=== PATIENT | male | born 1990 | race Caucasian/White ===

== ENCOUNTER 2018-08-01 23:26 | Emergency (ER) | payer BC, OTHER ==
--- NOTE | 2018-08-02 00:03 | EDM.PDOC ---
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 Review of systems: As per history of present illness and below otherwise all systems reviewed and negative. Past medical history: As per history of present illness and as reviewed below otherwise noncontributory. Surgical history: As per history of present illness and as reviewed below otherwise noncontributory. Social history: No reported history of drug or alcohol abuse. Family history: As per history of present illness and as reviewed below otherwise noncontributory. Physical exam: Remarkable for a superficial abrasion that is subacute to his right hand and a healing abrasion to his left forearm otherwise unremarkable Diagnostics: Postexposure protocol Therapeutics: To be determined Impression: #1 medical screening exam Definitive disposition and diagnosis as appropriate pending reevaluation and review of above. - Related Data Allergies Allergy/AdvReac Type Severity Reaction Status Date / Time No Known Allergies Allergy Verified 08/02/18 00:02 Home Meds: Home Meds Omeprazole Magnesium [Prilosec Otc] 20 mg PO DAILY 08/02/18 [History] ED ROS GENERAL - Review of Systems Review Of Systems: ROS reveals no pertinent complaints other than HPI. ED EXAM, GENERAL - Physical Exam Exam: See Below (Dictation) Course - Vital Signs Last Recorded V/S: Last Vital Signs Temp 37.1 C 08/01/18 23:59 Pulse 101 H 08/01/18 23:59 Resp 14 08/01/18 23:59 BP 167/104 H 08/01/18 23:59 Pulse Ox 95 08/01/18 23:59 - Orders/Labs/Meds Orders: Active Orders 24 hr Category Date Time Status HBSAG SCREEN [REF] Stat Lab 08/01/18 23:57 Received HEP C VIRUS AB [REF] Stat Lab 08/01/18 23:57 Received HIV12 AG/AB 4TH GEN W/REFLEX [CHEM] Stat Lab 08/01/18 23:57 Received Departure - Departure Time of Disposition: 00:02 Disposition: Home, Self-Care 01 Condition: Good Clinical Impression: Encounter for medical screening examination - Discharge Information *PRESCRIPTION DRUG MONITORING PROGRAM REVIEWED*: Not Applicable *COPY OF PRESCRIPTION DRUG MONITORING REPORT IN PATIENT JASBIR: Not Applicable Instructions: Medical Screening Exam Referrals: PCP,None [Primary Care Provider] - Forms: ED Department Discharge Additional Instructions: The following information is given to patients seen in the emergency department who are being discharged to home. This information is to outline your options for follow-up care. We provide all patients seen in our emergency department with a follow-up referral. The need for follow-up, as well as the timing and circumstances, are variable depending upon the specifics of your emergency department visit. If you don't have a primary care physician on staff, we will provide you with a referral. We always advise you to contact your personal physician following an emergency department visit to inform them of the circumstance of the visit and for follow-up with them and/or the need for any referrals to a consulting specialist. The emergency department will also refer you to a specialist when appropriate. This referral assures that you have the opportunity for followup care with a specialist. All of these measure are taken in an effort to provide you with optimal care, which includes your followup. Under all circumstances we always encourage you to contact your private physician who remains a resource for coordinating your care. When calling for followup care, please make the office aware that this follow-up is from your recent emergency room visit. If for any reason you are refused follow-up, please contact the [facility] emergency department at and asked to speak to the emergency department charge nurse. Follow-up occupational medicine/primary medical doctor return as needed as discussed - My Orders Last 24 Hours: My Active Orders 08/01/18 23:57 HBSAG SCREEN [REF] Stat HEP C VIRUS AB [REF] Stat HIV12 AG/AB 4TH GEN W/REFLEX [CHEM] Stat - Assessment/Plan Last 24 Hours: My Active Orders 08/01/18 23:57 HBSAG SCREEN [REF] Stat HEP C VIRUS AB [REF] Stat HIV12 AG/AB 4TH GEN W/REFLEX [CHEM] Stat
== END 2018-08-02 00:15 | disposition home or self-care (01) ==
LOC: MW.ED 23:26
DX: Z20.6 Contact with and (suspected) exposure to human immunodeficiency virus [HIV] (principal); S60.511A Abrasion of right hand, initial encounter; X58.XXXA Exposure to other specified factors, initial encounter
CPT/HCPCS: 86803; 87340; 87389; 99283

== ENCOUNTER 2020-01-17 22:39 | Emergency (ER) | payer OTHER ==
--- NOTE | 2020-01-18 00:16 | EDM.PDOC ---
ED HPI GENERAL MEDICAL PROBLEM - General Chief Complaint: Lower Extremity Injury/Pain Stated Complaint: PULLED HAMSTRING Time Seen by Provider: 01/18/20 00:05 Source of Information: Reports: Patient - History of Present Illness INITIAL COMMENTS - FREE TEXT/NARRATIVE: The patient was playing flag football and while running he felt his right hamstring pull. He has done this before but it is never hurt this much. No other complaints. left thigh Pain Score (Numeric/FACES): 6 - Related Data Allergies Allergy/AdvReac Type Severity Reaction Status Date / Time No Known Allergies Allergy Verified 01/17/20 23:08 Home Meds: Home Meds Omeprazole Magnesium [Prilosec Otc] 20 mg PO DAILY 08/02/18 [History] Past Medical History - Past Health History Medical/Surgical History: Denies Medical/Surgical History - Infectious Disease History Infectious Disease History: Reports: Chicken Pox Social & Family History - Family History Family Medical History: Noncontributory - Tobacco Use Smoking Status *Q: Never Smoker - Caffeine Use Caffeine Use: Reports: Coffee - Recreational Drug Use Recreational Drug Use: No Review of Systems - Review of Systems Review Of Systems: See Below (Positive for right hamstring injury) ED EXAM, GENERAL - Physical Exam Exam: See Below Free Text/Narrative:: Constitutional: No acute distress, Non-toxic appearance, antalgic gait. HEENT: Normocephalic, Atraumatic, EOMI Neck: Normal range of motion, No stridor, trachea midline Respiratory: No respiratory distress, No tachypnea Cardiovascular: Deferred Gastrointestinal: Deferred Genital / Urinary: Deferred Musculoskeletal: All four extremities present and atraumatic, there is tenderness to the proximal right hamstring, no hematoma, compartments are soft Back: FROM Integument: Warm, Dry, Color is ethnicity appropriate, No rash. Neuro: Alert, Awake, No focal deficits noted Psych: Affect, Judgement, mood normal Course - Vital Signs Text/Narrative:: Exam is consistent with a right hamstring strain. The patient will be given a dose of Toradol 60 mg IM. 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 Last Recorded V/S: Last Vital Signs Temp 36.4 C 01/17/20 23:06 Pulse 86 01/17/20 23:06 Resp 18 01/17/20 23:06 BP 131/75 01/17/20 23:06 Pulse Ox 96 01/17/20 23:06 - Orders/Labs/Meds Meds: Medications Discontinued Medications Generic Name Dose Route Start Last Admin Trade Name Gale PRN Reason Stop Dose Admin Ketorolac Tromethamine 60 mg 01/18/20 00:24 01/18/20 00:28 Toradol IM 01/18/20 00:25 60 mg ONETIME ONE Administration Ketorolac Tromethamine Confirm 01/18/20 00:25 Toradol Administered 01/18/20 00:26 Dose 60 mg .ROUTE .STK-MED ONE Departure - Departure Time of Disposition: 00:15 Disposition: Home, Self-Care 01 Condition: Good Clinical Impression: Right hamstring muscle strain, Hamstring sprain - Discharge Information Instructions: Hamstring Strain Referrals: PCP,None [Primary Care Provider] - Forms: ED Department Discharge Sepsis Event Note - Evaluation Sepsis Screening Result: No Definite Risk - Focused Exam Vital Signs: Vital Signs Temp Pulse Resp BP Pulse Ox 01/17/20 23:06 36.4 C 86 18 131/75 96 Date Exam was Performed: 01/18/20 Time Exam was Performed: 03:34
[2020-01-18] MEDS ORDERED: Ketorolac 60 MG/2 ML SDV IM ONE (00:24)
[2020-01-18] MEDS ORDERED: Ketorolac 60 MG/2 ML SDV ONE (00:25)
== END 2020-01-18 00:30 | disposition home or self-care (01) ==
LOC: MW.ED 22:39
DX: S76.311A Strain of muscle, fascia and tendon of the posterior muscle group at thigh level, right thigh, initial encounter (principal); Y93.02 Activity, running; Z79.899 Other long term (current) drug therapy
CPT/HCPCS: 96372; 99283; J1885